=== PATIENT | female | born 1945 | race Two or more races ===

== ENCOUNTER 2016-04-30 01:38 | Inpatient (IN) | payer MEDICARE, BC ==
[2016-04-30] VITALS (40 sets, daily range): BP systolic 105–158; BP diastolic 60–107
[~2016-04-30] VITALS: Ht 165.1 cm; Wt 105.8 kg
[2016-04-30] MEDS ORDERED: FENTANYL PF 100MCG/2ML AMPUL ONE (01:46)
[2016-04-30] MEDS ORDERED: FENTANYL PF 100MCG/2ML AMPUL IV ONE (02:00)
[2016-04-30] MEDS ORDERED: ROCURONIUM BROMIDE 100 MG/10 ML VIAL IV ONE (02:00)
[2016-04-30] MEDS ORDERED: IV NS 0.9% 1,000 ML BAG IV ONE ×2 (02:00→05:00)
[2016-04-30] MEDS ORDERED: ETOMIDATE 2 MG/ML VIAL IV ONE ×2 (02:00→10:59)
[2016-04-30] MEDS ORDERED: PROPOFOL 100 ML IV ONE ×3 (02:00→06:27)
[2016-04-30] MEDS ORDERED: IV SET PRIMARY PUMP SET 1 EA INFUS.SET MC ONE ×3 (02:03→06:16)
[2016-04-30] MEDS ORDERED: IV NS 0.9% 1,000 ML ONE ×3 (02:03→06:16)
[2016-04-30 02:23] LABS: BASOPHILS # (AUTO) 0.1 /CMM (0.0-0.2); BASOPHILS % (AUTO) 0.7 % (0.0-2.0); DIFF TOTAL % 100 %; EOSINOPHILS % (AUTO) 0.4 % (0.0-6.0); HEMATOCRIT 33 % (33-45); HEMOGLOBIN 10.6 g/dL (11.5-14.8); LYMPHOCYTES % (AUTO) 15.8 % (20.0-44.0); MEAN CORPUSCULAR HEMOGLOBIN 30 PG (26.0-33.0); MEAN CORPUSCULAR HGB CONC 32 g/dl (31.0-36.0); MEAN CORPUSCULAR VOLUME 93 fL (82-100); MONOCYTES # (AUTO) 0.9 /CMM (0.1-1.30); MONOCYTES % (AUTO) 7.4 % (2.0-12.0); NEUTROPHILS # (AUTO) 9.7 /CMM (1.8-8.9); NEUTROPHILS % (AUTO) 75.7 % (43.0-81.0); PLATELET COUNT (AUTO) 286 /CMM (150-450); RED BLOOD CELL COUNT(AUTO) 3.54 MIL/uL (4.0-5.2); WHITE BLOOD COUNT (AUTO) 12.8 K/uL (4.3-11.0)
[2016-04-30 02:24] LABS: KETONES,URINE NEGATIVE (NEGATIVE); LEUKOCYTE ESTERASE ,URINE 2+ (NEGATIVE)
[2016-04-30 02:38] LABS: ANION GAP 16 (5-14); CALCIUM, SERUM 7.8 mg/dL (8.5-10.1); CARBON DIOXIDE 22 mmol/L (21-32); CHLORIDE 111 mmol/L (98-107); CREATININE 0.7 mg/dL (0.6-1.3); GFR 83 mL/min (>60); GLUCOSE 113 mg/dL (74-106); POTASSIUM 4.8 mmol/L (3.5-5.1); SODIUM SERUM 144 mmol/L (136-145); UREA NITROGEN, BLOOD 40 mg/dL (7-18)
[2016-04-30 02:40] LABS: ADD UA MICROSCOPIC YES; CANNABINOID, URINE NEGATIVE (NEGATIVE); PHENCYCLIDINE SCREEN,URINE NEGATIVE (NEGATIVE)
[2016-04-30] MEDS ORDERED: LEVE250T2 PO (02:40)
[2016-04-30] MEDS ORDERED: ENOX40DI SUBCUT (02:40)
[2016-04-30] MEDS ORDERED: LEVE500T9 PO (02:40)
[2016-04-30] MEDS ORDERED: ACET-2799 PO (02:40)
[2016-04-30] MEDS ORDERED: DEXA1TAB2 GT (02:40)
[2016-04-30] MEDS ORDERED: MAGN400O6 PO (02:40)
[2016-04-30 02:41] LABS: INR 1.22 (0.87-1.13); PROTHROMBIN TIME 13.2 SECS (9.5-12.7)
[2016-04-30 02:45] LABS: ALANINE AMINOTRANSFERASE 66 U/L (12-78); ASPARTATE AMINOTRANSFERASE 140 U/L (15-37); BILIRUBIN,DIRECT 0.2 mg/dL (0.0-0.2); BILIRUBIN,TOTAL 0.6 mg/dL (0.2-1.0); TOTAL PROTEIN, SERUM 6.1 g/dL (6.4-8.2)
[2016-04-30 02:52] LABS: ALBUMIN 1.3 g/dL (3.4-5.0); INDIRECT BILIRUBIN 0.4 mg/dL (0.0-1.1)
[2016-04-30 02:54] LABS: ACETAMINOPHEN 0 ug/ml (10-30); SALICYLATE < 0.2 mg/dL (2.8-20.0)
[2016-04-30] MEDS ORDERED: IV D5W 50 ML IV ONE (03:00)
[2016-04-30] MEDS ORDERED: PIPERACILLIN /TAZOBACTAM 3.375 G VIAL IV ONE (03:00)
[2016-04-30] MEDS ORDERED: PIPERACILLIN /TAZOBACTAM 3.375 G in IV D5W 50 ML IV ONE ×2 (03:00→05:30)
[2016-04-30] MEDS ORDERED: IV SET PRIMARY 1 EA INFUS.SET MC ONE ×2 (03:00→04:01)
[2016-04-30 03:06] LABS: ADD URINE CULTURE YES; WBC,URINE 51-80 /HPF (0-3)
[2016-04-30 03:09] LABS: ANISOCYTOSIS 2+
[2016-04-30 03:13] LABS: TROPONIN I < 0.017 ng/mL (0.00-0.056)
[2016-04-30 03:40] LABS: LACTIC ACID 3.3 mmol/L (0.4-2.0)
[2016-04-30 03:41] LABS: *LACTIC ACID REFLEX FLAG YES
[2016-04-30] MEDS ORDERED: DEXAMETHASONE SOD PHOSPHATE 10 MG/ML VIAL ONE (03:46)
[2016-04-30] MEDS ORDERED: METRONIDAZOLE 500MG/ NS 100ML 100 ML IV ONE (03:47)
[2016-04-30] MEDS ORDERED: DEXAMETHASONE SOD PHOSPHATE 4 MG/ML VIAL IV ONE (04:00)
[2016-04-30] MEDS ORDERED: FLAGYL/NS RTU 500 MG/100 ML PIGGYBACK IV ONE (04:00)
[2016-04-30] MEDS ORDERED: LACTULOSE 10 G/15 ML UDC (PYXIS) GT ONE (05:00)
[2016-04-30] MEDS ORDERED: LACTULOSE 10 G/15 ML UDC (PYXIS) ONE (05:00)
[2016-04-30] MEDS ORDERED: NEOMYCIN SULFATE (500MG) 500 MG TABLET NG ONE (05:00)
[2016-04-30] MEDS ORDERED: ZINC SULFATE 220 MG CAPSULE ONE (05:08)
[2016-04-30] MEDS ORDERED: NEOMYCIN SULFATE (500MG) 500 MG TABLET ONE (05:08)
[2016-04-30] MEDS: ZINC SULFATE 220 MG CAPSULE NG SCH (05:16)
[2016-04-30] MEDS ORDERED: IV NS 0.9% 1,000 ML IV PRN ×2 (05:20→06:00)
[2016-04-30] MEDS ORDERED: MAGNESIUM HYDROXIDE 30 ML UDC PO PRN (05:30)
[2016-04-30] MEDS ORDERED: MAG HYDROX/AL HYDROX/SIMETH 30 ML UDC PO PRN (05:30)
[2016-04-30] MEDS ORDERED: Z GUARD REMEDY 2 OZ OINT TP PRN (05:30)
[2016-04-30] MEDS ORDERED: ONDANSETRON HCL/PF 4 MG/2 ML VIAL IVP PRN (05:30)
[2016-04-30] MEDS ORDERED: DEXAMETHASONE SOD PHOSPHATE 4 MG/ML VIAL ONE (06:16)
[2016-04-30] MEDS: IV NS 0.9% 1,000 ML IV PRN ×3 (06:22→23:24)
[2016-04-30] MEDS: DEXAMETHASONE SOD PHOSPHATE 4 MG/ML VIAL IV SCH ×4 (06:24→23:25)
[2016-04-30] MEDS ORDERED: PROPOFOL 100 ML IV PRN (07:00)
[2016-04-30] MEDS ORDERED: LACTULOSE 10 G/15 ML UDC (PYXIS) PO SCH (09:00)
[2016-04-30] MEDS: PANTOPRAZOLE 40 MG VIAL IV SCH (09:51)
[2016-04-30] MEDS: LACTULOSE 10 G/15 ML UDC (PYXIS) GT SCH ×4 (09:51→20:45)
[2016-04-30] MEDS ORDERED: ROCURONIUM BROMIDE 50 MG/5 ML IV ONE (10:59)
[2016-04-30] MEDS ORDERED: FEE EMEERGENCY 1 MIN EA MC ONE (11:00)
[2016-04-30] MEDS: LEVETIRACETAM SOL (5 ML) 100 MG/ML UDC PO SCH ×2 (12:35→20:45)
[2016-05-01] VITALS (38 sets, daily range): BP systolic 100–139; BP diastolic 57–78
[2016-05-01] MEDS: LACTULOSE 10 G/15 ML UDC (PYXIS) GT SCH ×6 (00:26→20:36)
[2016-05-01] MEDS: DEXAMETHASONE SOD PHOSPHATE 4 MG/ML VIAL IV SCH ×3 (04:32→17:39)
[2016-05-01 04:39] LABS: BASOPHILS % (AUTO) 0.2 % (0.0-2.0); DIFF TOTAL % 100 %; HEMATOCRIT 30 % (33-45); HEMOGLOBIN 9.5 g/dL (11.5-14.8); LYMPHOCYTES # (AUTO) 1.1 /CMM (0.8-4.8); LYMPHOCYTES % (AUTO) 8.8 % (20.0-44.0); MEAN CORPUSCULAR HEMOGLOBIN 30 PG (26.0-33.0); MEAN CORPUSCULAR HGB CONC 32 g/dl (31.0-36.0); MEAN CORPUSCULAR VOLUME 93 fL (82-100); MONOCYTES # (AUTO) 0.9 /CMM (0.1-1.30); MONOCYTES % (AUTO) 7.4 % (2.0-12.0); NEUTROPHILS # (AUTO) 10.1 /CMM (1.8-8.9); NEUTROPHILS % (AUTO) 83.6 % (43.0-81.0); PLATELET COUNT (AUTO) 233 /CMM (150-450); RED BLOOD CELL COUNT(AUTO) 3.17 MIL/uL (4.0-5.2)
[2016-05-01 04:49] LABS: CALCIUM, SERUM 7.5 mg/dL (8.5-10.1); CREATININE 0.8 mg/dL (0.6-1.3); PHOSPHORUS 3.2 mg/dL (2.5-4.9); POTASSIUM 4.1 mmol/L (3.5-5.1)
[2016-05-01] MEDS: IV NS 0.9% 1,000 ML IV PRN (07:01)
[2016-05-01] MEDS ORDERED: DC PROPOFOL WHEN EXTUBATED XX PRN (09:00)
[2016-05-01 09:04] LABS: ABG BASE EXCESS 0.1 mmol/L; ABG HCO3 24.1 mmol/L; ABG PCO2 36.9 mmHg (35.0-45.0); ABG PH 7.433 (7.350-7.450); ABG PO2 58.7 mmHg (75.0-100.0); ABG TOTAL HEMOGLOBIN 11.1 G/dL (12.0-16.0); ALLEN TEST Pass; O2Hb 85.7 % (94.0-97.0)
[2016-05-01] MEDS: LEVETIRACETAM SOL (5 ML) 100 MG/ML UDC PO SCH ×2 (09:48→20:36)
[2016-05-01] MEDS: ZINC SULFATE 220 MG CAPSULE NG SCH (09:48)
[2016-05-01] MEDS: PANTOPRAZOLE 40 MG VIAL IV SCH (09:48)
[2016-05-01 10:21] LABS: IRON, SERUM 30 ug/dl (50-175); PERCENT SATURATION 17 % (14-33); TOTAL IRON BINDING CAPACITY 173 ug/dl (250-450)
[2016-05-01] MEDS ORDERED: GADOVERSETAMIDE 2.5 MMOL/5 ML VIAL IJ ONE (15:18)
[2016-05-01] MEDS: IV D5/0.45 NACL 1,000 ML IV PRN (15:19)
[2016-05-02] VITALS (37 sets, daily range): BP systolic 98–148; BP diastolic 40–83
[2016-05-02] MEDS: DEXAMETHASONE SOD PHOSPHATE 4 MG/ML VIAL IV SCH ×5 (00:07→23:10)
[2016-05-02] MEDS: LACTULOSE 10 G/15 ML UDC (PYXIS) GT SCH ×6 (00:08→21:38)
[2016-05-02] MEDS: IV D5/0.45 NACL 1,000 ML IV PRN (01:15)
[2016-05-02 04:17] LABS: BASOPHILS % (AUTO) 0.1 % (0.0-2.0); DIFF TOTAL % 100 %; HEMATOCRIT 27 % (33-45); HEMOGLOBIN 8.5 g/dL (11.5-14.8); LYMPHOCYTES # (AUTO) 0.8 /CMM (0.8-4.8); LYMPHOCYTES % (AUTO) 7.4 % (20.0-44.0); MEAN CORPUSCULAR HEMOGLOBIN 30 PG (26.0-33.0); MEAN CORPUSCULAR HGB CONC 32 g/dl (31.0-36.0); MEAN CORPUSCULAR VOLUME 94 fL (82-100); MONOCYTES # (AUTO) 0.7 /CMM (0.1-1.30); MONOCYTES % (AUTO) 6.5 % (2.0-12.0); NEUTROPHILS # (AUTO) 8.8 /CMM (1.8-8.9); PLATELET COUNT (AUTO) 192 /CMM (150-450); RED BLOOD CELL COUNT(AUTO) 2.84 MIL/uL (4.0-5.2); WHITE BLOOD COUNT (AUTO) 10.3 K/uL (4.3-11.0)
[2016-05-02 05:22] LABS: CALCIUM, SERUM 7.2 mg/dL (8.5-10.1); CREATININE 0.8 mg/dL (0.6-1.3); PHOSPHORUS 3.4 mg/dL (2.5-4.9); POTASSIUM 4.1 mmol/L (3.5-5.1)
[2016-05-02 08:48] LABS: ABG BASE EXCESS -2.2 mmol/L; ABG HCO3 21.8 mmol/L; ABG PCO2 34.3 mmHg (35.0-45.0); ABG PH 7.421 (7.350-7.450); ABG PO2 92.4 mmHg (75.0-100.0); ALLEN TEST Pass; AaDO2 66.8 mmHg; O2Hb 94.1 % (94.0-97.0)
[2016-05-02] MEDS: PANTOPRAZOLE 40 MG VIAL IV SCH (09:17)
[2016-05-02] MEDS: LEVETIRACETAM SOL (5 ML) 100 MG/ML UDC PO SCH ×2 (09:17→21:38)
[2016-05-02] MEDS: ZINC SULFATE 220 MG CAPSULE NG SCH (09:17)
[2016-05-02] MEDS ORDERED: SECONDARY IV SET 1 EA INFUS.SET MC ONE (10:01)
[2016-05-02] MEDS: LEVOFLOXACIN 750 MG /D5W 150ML 750 MG in PREMIX 1 EA IV SCH (10:03)
[2016-05-02] MEDS ORDERED: IV SET PRIMARY PUMP SET 1 EA INFUS.SET MC ONE (11:26)
[2016-05-02] MEDS: ALBUMIN 25% 25 GM in PREMIX 1 EA IV SCH ×3 (12:32→23:10)
[2016-05-02] MEDS: IV D5W 1,000 ML IV PRN (19:21)
[2016-05-02 20:03] LABS: BASOPHILS # (AUTO) 0.2 /CMM (0.0-0.2); BASOPHILS % (AUTO) 1.6 % (0.0-2.0); DIFF TOTAL % 100 %; HEMATOCRIT 24 % (33-45); HEMOGLOBIN 7.9 g/dL (11.5-14.8); LYMPHOCYTES # (AUTO) 0.7 /CMM (0.8-4.8); LYMPHOCYTES % (AUTO) 7.6 % (20.0-44.0); MEAN CORPUSCULAR HEMOGLOBIN 31 PG (26.0-33.0); MEAN CORPUSCULAR HGB CONC 33 g/dl (31.0-36.0); MEAN CORPUSCULAR VOLUME 93 fL (82-100); MONOCYTES # (AUTO) 0.8 /CMM (0.1-1.30); MONOCYTES % (AUTO) 8.2 % (2.0-12.0); NEUTROPHILS % (AUTO) 82.6 % (43.0-81.0); PLATELET COUNT (AUTO) 148 /CMM (150-450); RED BLOOD CELL COUNT(AUTO) 2.59 MIL/uL (4.0-5.2); WHITE BLOOD COUNT (AUTO) 9.7 K/uL (4.3-11.0)
[2016-05-02 20:26] LABS: URINE SODIUM, RANDOM 10 mmol/l (40-220)
[2016-05-03] VITALS (34 sets, daily range): BP systolic 110–134; BP diastolic 56–73
[2016-05-03] MEDS: LACTULOSE 10 G/15 ML UDC (PYXIS) GT SCH ×3 (01:01→08:01)
[2016-05-03 01:27] LABS: BASOPHILS % (AUTO) 0.1 % (0.0-2.0); DIFF TOTAL % 100 %; HEMATOCRIT 22 % (33-45); LYMPHOCYTES # (AUTO) 0.5 /CMM (0.8-4.8); LYMPHOCYTES % (AUTO) 6.9 % (20.0-44.0); MEAN CORPUSCULAR HEMOGLOBIN 30 PG (26.0-33.0); MEAN CORPUSCULAR HGB CONC 32 g/dl (31.0-36.0); MEAN CORPUSCULAR VOLUME 93 fL (82-100); MONOCYTES # (AUTO) 0.4 /CMM (0.1-1.30); MONOCYTES % (AUTO) 5.9 % (2.0-12.0); NEUTROPHILS # (AUTO) 6.5 /CMM (1.8-8.9); NEUTROPHILS % (AUTO) 87.1 % (43.0-81.0); PLATELET COUNT (AUTO) 133 /CMM (150-450); RED BLOOD CELL COUNT(AUTO) 2.33 MIL/uL (4.0-5.2); WHITE BLOOD COUNT (AUTO) 7.5 K/uL (4.3-11.0)
[2016-05-03 01:40] LABS: HEMOGLOBIN 6.9 g/dL (11.5-14.8)
[2016-05-03 04:53] LABS: ANISOCYTOSIS 3+; HYPOCHROMASIA 3+; LYMPHOCYTES % (MANUAL) 12 % (16-48); PLATELET ESTIMATE DECREASED
[2016-05-03] MEDS: ALBUMIN 25% 25 GM in PREMIX 1 EA IV SCH (04:54)
[2016-05-03] MEDS: DEXAMETHASONE SOD PHOSPHATE 4 MG/ML VIAL IV SCH ×4 (05:00→23:23)
[2016-05-03] MEDS ORDERED: BLOOD IV SET 1 EA INFUS.SET MC ONE ×3 (05:40→21:23)
[2016-05-03] MEDS ORDERED: IV NS 0.9% 250 ML IV ONE ×2 (05:40→16:46)
[2016-05-03 06:38] LABS: BASOPHILS % (AUTO) 0.2 % (0.0-2.0); DIFF TOTAL % 100 %; EOSINOPHILS % (AUTO) 0.1 % (0.0-6.0); HEMATOCRIT 22 % (33-45); LYMPHOCYTES # (AUTO) 0.5 /CMM (0.8-4.8); LYMPHOCYTES % (AUTO) 7.3 % (20.0-44.0); MEAN CORPUSCULAR HEMOGLOBIN 30 PG (26.0-33.0); MEAN CORPUSCULAR HGB CONC 32 g/dl (31.0-36.0); MEAN CORPUSCULAR VOLUME 94 fL (82-100); MONOCYTES # (AUTO) 0.4 /CMM (0.1-1.30); MONOCYTES % (AUTO) 5.9 % (2.0-12.0); NEUTROPHILS # (AUTO) 6.1 /CMM (1.8-8.9); NEUTROPHILS % (AUTO) 86.5 % (43.0-81.0); PLATELET COUNT (AUTO) 121 /CMM (150-450); RED BLOOD CELL COUNT(AUTO) 2.29 MIL/uL (4.0-5.2)
[2016-05-03 06:48] LABS: URINE SODIUM, RANDOM 58 mmol/l (40-220)
[2016-05-03 06:51] LABS: CALCIUM, SERUM 7.6 mg/dL (8.5-10.1); CREATININE 0.8 mg/dL (0.6-1.3); PHOSPHORUS 2.9 mg/dL (2.5-4.9); POTASSIUM 3.5 mmol/L (3.5-5.1)
[2016-05-03 07:01] LABS: THYROID STIMULATING HORMONE 1.435 uIU/mL (0.358-3.74); URIC ACID 4.5 mg/dL (2.6-7.2)
[2016-05-03 07:41] LABS: HEMOGLOBIN 6.9 g/dL (11.5-14.8)
[2016-05-03] MEDS: LEVETIRACETAM SOL (5 ML) 100 MG/ML UDC PO SCH ×2 (08:00→21:30)
[2016-05-03] MEDS: ZINC SULFATE 220 MG CAPSULE NG SCH (08:01)
[2016-05-03] MEDS: PANTOPRAZOLE 40 MG VIAL IV SCH (08:01)
[2016-05-03 09:58] LABS: ANISOCYTOSIS 2+; BAND % (MANUAL) 1 % (0.0-5.0); LYMPHOCYTES % (MANUAL) 5 % (16-48); PLATELET ESTIMATE DECREASED
[2016-05-03] MEDS: LEVOFLOXACIN 750 MG /D5W 150ML 750 MG in PREMIX 1 EA IV SCH (10:36)
[2016-05-03] MEDS ORDERED: PANTOPRAZOLE 80 MG in IV NS 0.9% 100 ML IV ONE ×2 (11:30→12:00)
[2016-05-03] MEDS ORDERED: IV SET PRIMARY PUMP SET 1 EA INFUS.SET MC ONE (12:35)
[2016-05-03] MEDS: PANTOPRAZOLE 80 MG in IV NS 0.9% 500 ML IV PRN (13:04)
[2016-05-03] MEDS: IV D5W 1,000 ML IV PRN (13:17)
[2016-05-03 13:30] LABS: BASOPHILS % (AUTO) 0.2 % (0.0-2.0); DIFF TOTAL % 100 %; EOSINOPHILS % (AUTO) 0.1 % (0.0-6.0); HEMATOCRIT 29 % (33-45); HEMOGLOBIN 9.3 g/dL (11.5-14.8); LYMPHOCYTES # (AUTO) 0.7 /CMM (0.8-4.8); LYMPHOCYTES % (AUTO) 8.2 % (20.0-44.0); MEAN CORPUSCULAR HEMOGLOBIN 30 PG (26.0-33.0); MEAN CORPUSCULAR HGB CONC 32 g/dl (31.0-36.0); MEAN CORPUSCULAR VOLUME 92 fL (82-100); MONOCYTES # (AUTO) 0.5 /CMM (0.1-1.30); MONOCYTES % (AUTO) 5.5 % (2.0-12.0); NEUTROPHILS # (AUTO) 7.3 /CMM (1.8-8.9); PLATELET COUNT (AUTO) 108 /CMM (150-450); RED BLOOD CELL COUNT(AUTO) 3.15 MIL/uL (4.0-5.2); WHITE BLOOD COUNT (AUTO) 8.5 K/uL (4.3-11.0)
[2016-05-03 13:36] LABS: ALBUMIN 2.6 g/dL (3.4-5.0); BILIRUBIN,DIRECT 0.4 mg/dL (0.0-0.2); BILIRUBIN,TOTAL 0.8 mg/dL (0.2-1.0); INDIRECT BILIRUBIN 0.4 mg/dL (0.0-1.1); TOTAL PROTEIN, SERUM 5.3 g/dL (6.4-8.2)
[2016-05-03] MEDS ORDERED: PANTOPRAZOLE 40 MG VIAL IV SCH (17:00)
[2016-05-04] VITALS (33 sets, daily range): BP systolic 104–143; BP diastolic 49–78
[2016-05-04] MEDS ORDERED: PANTOPRAZOLE 40 MG VIAL ONE (01:19)
[2016-05-04] MEDS ORDERED: IV NS 0.9% 500 ML IV ONE (01:19)
[2016-05-04] MEDS: PANTOPRAZOLE 80 MG in IV NS 0.9% 500 ML IV PRN ×3 (01:29→20:58)
[2016-05-04] MEDS: IV D5W 1,000 ML IV PRN ×3 (01:33→21:56)
[2016-05-04 04:49] LABS: BASOPHILS % (AUTO) 0.4 % (0.0-2.0); DIFF TOTAL % 100 %; HEMATOCRIT 27 % (33-45); HEMOGLOBIN 8.7 g/dL (11.5-14.8); LYMPHOCYTES # (AUTO) 0.5 /CMM (0.8-4.8); LYMPHOCYTES % (AUTO) 5.8 % (20.0-44.0); MEAN CORPUSCULAR HEMOGLOBIN 29 PG (26.0-33.0); MEAN CORPUSCULAR HGB CONC 32 g/dl (31.0-36.0); MEAN CORPUSCULAR VOLUME 91 fL (82-100); MONOCYTES # (AUTO) 0.4 /CMM (0.1-1.30); MONOCYTES % (AUTO) 4.8 % (2.0-12.0); NEUTROPHILS # (AUTO) 6.9 /CMM (1.8-8.9); PLATELET COUNT (AUTO) 92 /CMM (150-450); RED BLOOD CELL COUNT(AUTO) 2.97 MIL/uL (4.0-5.2); WHITE BLOOD COUNT (AUTO) 7.8 K/uL (4.3-11.0)
[2016-05-04 05:07] LABS: CALCIUM, SERUM 7.9 mg/dL (8.5-10.1); CREATININE 0.7 mg/dL (0.6-1.3); PHOSPHORUS 2.9 mg/dL (2.5-4.9); POTASSIUM 3.8 mmol/L (3.5-5.1)
[2016-05-04] MEDS: DEXAMETHASONE SOD PHOSPHATE 4 MG/ML VIAL IV SCH ×3 (05:19→17:01)
[2016-05-04 05:44] LABS: BAND % (MANUAL) 6 % (0.0-5.0); EOSINOPHILS % (MANUAL) 1 % (0-4); LYMPHOCYTES % (MANUAL) 10 % (16-48); PLATELET ESTIMATE DECREASED
[2016-05-04 05:45] LABS: ANISOCYTOSIS 2+; HYPOCHROMASIA 1+
[2016-05-04] MEDS: LEVETIRACETAM SOL (5 ML) 100 MG/ML UDC PO SCH ×2 (08:21→20:44)
[2016-05-04] MEDS: ZINC SULFATE 220 MG CAPSULE NG SCH (08:21)
[2016-05-04] MEDS: LACTULOSE 10 G/15 ML UDC (PYXIS) GT SCH (08:21)
[2016-05-04] MEDS ORDERED: IV SET PRIMARY PUMP SET 1 EA INFUS.SET MC ONE (10:55)
[2016-05-04] MEDS: LEVOFLOXACIN 750 MG /D5W 150ML 750 MG in PREMIX 1 EA IV SCH (11:17)
[2016-05-05] VITALS (8 sets, daily range): BP systolic 113–148; BP diastolic 62–90
[2016-05-05] MEDS: DEXAMETHASONE SOD PHOSPHATE 4 MG/ML VIAL IV SCH ×5 (00:09→23:12)
[2016-05-05 07:27] LABS: BASOPHILS % (AUTO) 0.1 % (0.0-2.0); DIFF TOTAL % 100 %; HEMATOCRIT 31 % (33-45); HEMOGLOBIN 10.5 g/dL (11.5-14.8); LYMPHOCYTES # (AUTO) 0.6 /CMM (0.8-4.8); LYMPHOCYTES % (AUTO) 5.5 % (20.0-44.0); MEAN CORPUSCULAR HEMOGLOBIN 31 PG (26.0-33.0); MEAN CORPUSCULAR HGB CONC 34 g/dl (31.0-36.0); MEAN CORPUSCULAR VOLUME 91 fL (82-100); MONOCYTES # (AUTO) 0.3 /CMM (0.1-1.30); NEUTROPHILS # (AUTO) 10.1 /CMM (1.8-8.9); NEUTROPHILS % (AUTO) 91.4 % (43.0-81.0); PLATELET COUNT (AUTO) 83 /CMM (150-450); WHITE BLOOD COUNT (AUTO) 11.1 K/uL (4.3-11.0)
[2016-05-05 07:53] LABS: CALCIUM, SERUM 7.6 mg/dL (8.5-10.1); CREATININE 0.6 mg/dL (0.6-1.3); PHOSPHORUS 2.4 mg/dL (2.5-4.9); POTASSIUM 3.3 mmol/L (3.5-5.1)
[2016-05-05] MEDS: PANTOPRAZOLE 80 MG in IV NS 0.9% 500 ML IV PRN ×2 (08:12→20:00)
[2016-05-05] MEDS: LEVETIRACETAM SOL (5 ML) 100 MG/ML UDC PO SCH ×2 (08:20→20:38)
[2016-05-05] MEDS: ZINC SULFATE 220 MG CAPSULE NG SCH (08:20)
[2016-05-05] MEDS: LACTULOSE 10 G/15 ML UDC (PYXIS) GT SCH (08:21)
[2016-05-05] MEDS: IV D5W 1,000 ML IV PRN (08:31)
[2016-05-05 09:08] LABS: ANISOCYTOSIS 1+; LYMPHOCYTES % (MANUAL) 3 % (16-48); PLATELET ESTIMATE DECREASED
[2016-05-05] MEDS ORDERED: POTASSIUM CHLORIDE 20 MEQ TAB.PRT.SR PO SCH (10:00)
[2016-05-05] MEDS ORDERED: SECONDARY IV SET 1 EA INFUS.SET MC ONE ×2 (10:26→12:35)
[2016-05-05] MEDS: LEVOFLOXACIN 750 MG /D5W 150ML 750 MG in PREMIX 1 EA IV SCH (10:30)
[2016-05-05] MEDS ORDERED: POTASSIUM CHLORIDE 20 MEQ POWDER PACKET PO ONE (10:30)
[2016-05-05] MEDS ORDERED: POTASSIUM PHOSPHATE MM 15 MMOL in IV D5W 250 ML IV SCH (11:00)
[2016-05-05] MEDS ORDERED: FUROSEMIDE 40 MG/4 ML VIAL IV SCH (11:00)
[2016-05-05] MEDS: POTASSIUM PHOSPHATE MM 7.5 MMOL in IV D5W 100 ML IV SCH ×2 (12:40→15:46)
[2016-05-05 13:45] LABS: ABG BASE EXCESS -1.6 mmol/L; ABG HCO3 22.2 mmol/L; ABG PH 7.432 (7.350-7.450); ABG PO2 75.3 mmHg (75.0-100.0); ALLEN TEST Pass; AaDO2 84.2 mmHg; O2Hb 92.5 % (94.0-97.0)
[2016-05-06] VITALS (7 sets, daily range): BP systolic 111–133; BP diastolic 57–74
[2016-05-06] MEDS: DEXAMETHASONE SOD PHOSPHATE 4 MG/ML VIAL IV SCH ×4 (05:15→23:40)
[2016-05-06] MEDS: PANTOPRAZOLE 80 MG in IV NS 0.9% 500 ML IV PRN (06:14)
[2016-05-06 07:31] LABS: CALCIUM, SERUM 7.8 mg/dL (8.5-10.1); CREATININE 0.5 mg/dL (0.6-1.3); POTASSIUM 3.9 mmol/L (3.5-5.1)
[2016-05-06 07:39] LABS: DIFF TOTAL % 100 %; HEMATOCRIT 34 % (33-45); HEMOGLOBIN 11.1 g/dL (11.5-14.8); LYMPHOCYTES # (AUTO) 0.5 /CMM (0.8-4.8); LYMPHOCYTES % (AUTO) 4.6 % (20.0-44.0); MEAN CORPUSCULAR HEMOGLOBIN 30 PG (26.0-33.0); MEAN CORPUSCULAR HGB CONC 33 g/dl (31.0-36.0); MEAN CORPUSCULAR VOLUME 91 fL (82-100); MONOCYTES # (AUTO) 0.5 /CMM (0.1-1.30); MONOCYTES % (AUTO) 3.9 % (2.0-12.0); NEUTROPHILS # (AUTO) 10.8 /CMM (1.8-8.9); NEUTROPHILS % (AUTO) 91.5 % (43.0-81.0); PLATELET COUNT (AUTO) 90 /CMM (150-450); RED BLOOD CELL COUNT(AUTO) 3.72 MIL/uL (4.0-5.2); WHITE BLOOD COUNT (AUTO) 11.9 K/uL (4.3-11.0)
[2016-05-06 08:09] LABS: PHOSPHORUS 2.9 mg/dL (2.5-4.9)
[2016-05-06] MEDS: ZINC SULFATE 220 MG CAPSULE NG SCH (08:10)
[2016-05-06] MEDS: LEVETIRACETAM SOL (5 ML) 100 MG/ML UDC PO SCH ×2 (08:10→20:36)
[2016-05-06] MEDS: LACTULOSE 10 G/15 ML UDC (PYXIS) GT SCH (08:10)
[2016-05-06 09:25] LABS: ANISOCYTOSIS 2+; BAND % (MANUAL) 1 % (0.0-5.0); BURR CELLS 1+; LYMPHOCYTES % (MANUAL) 4 % (16-48); PLATELET ESTIMATE DECREASED
[2016-05-06] MEDS ORDERED: LACT10SO6 GT (09:57)
[2016-05-06] MEDS ORDERED: LEVE100S PO (09:57)
[2016-05-06] MEDS ORDERED: PANT40TA2 PO (09:57)
[2016-05-06] MEDS ORDERED: AMOX-430 PO (09:58)
[2016-05-06] MEDS ORDERED: SECONDARY IV SET 1 EA INFUS.SET MC ONE (09:59)
[2016-05-06] MEDS: Magnesium 1GM/D5W 100ML PREMIX 100 ML IV SCH ×4 (10:03→13:04)
[2016-05-06] MEDS ORDERED: IV SET PRIMARY PUMP SET 1 EA INFUS.SET MC ONE (11:00)
[2016-05-06] MEDS: LEVOFLOXACIN 750 MG /D5W 150ML 750 MG in PREMIX 1 EA IV SCH (11:03)
[2016-05-06] MEDS: PANTOPRAZOLE 40 MG TABLET.DR PO SCH (20:36)
[2016-05-07] MEDS: DEXAMETHASONE SOD PHOSPHATE 4 MG/ML VIAL IV SCH ×3 (05:04→17:27)
[2016-05-07 07:26] LABS: CALCIUM, SERUM 7.9 mg/dL (8.5-10.1); CREATININE 0.5 mg/dL (0.6-1.3); POTASSIUM 4.8 mmol/L (3.5-5.1)
[2016-05-07 08:00] VITALS: BP 128/73
[2016-05-07] MEDS: LACTULOSE 10 G/15 ML UDC (PYXIS) GT SCH (08:37)
[2016-05-07] MEDS: LEVETIRACETAM SOL (5 ML) 100 MG/ML UDC PO SCH ×2 (08:37→21:30)
[2016-05-07] MEDS: PANTOPRAZOLE 40 MG TABLET.DR PO SCH ×2 (08:37→21:30)
[2016-05-07] MEDS: ZINC SULFATE 220 MG CAPSULE NG SCH (08:37)
[2016-05-07] MEDS: LEVOFLOXACIN 750 MG /D5W 150ML 750 MG in PREMIX 1 EA IV SCH (11:01)
[2016-05-07 16:00] VITALS: BP 113/68
[2016-05-07 20:00] VITALS: BP 127/65
[2016-05-07 20:24] VITALS: BP 127/65
[2016-05-08] MEDS: DEXAMETHASONE SOD PHOSPHATE 4 MG/ML VIAL IV SCH ×4 (00:30→17:00)
[2016-05-08 06:52] LABS: CREATININE 0.6 mg/dL (0.6-1.3); POTASSIUM 4.3 mmol/L (3.5-5.1)
[2016-05-08 08:00] VITALS: BP 135/72
[2016-05-08 08:28] VITALS: BP 135/72
[2016-05-08] MEDS: LEVETIRACETAM SOL (5 ML) 100 MG/ML UDC PO SCH ×2 (09:12→20:56)
[2016-05-08] MEDS: PANTOPRAZOLE 40 MG TABLET.DR PO SCH ×2 (09:12→20:56)
[2016-05-08] MEDS: ZINC SULFATE 220 MG CAPSULE NG SCH (09:12)
[2016-05-08] MEDS: LACTULOSE 10 G/15 ML UDC (PYXIS) GT SCH (09:12)
[2016-05-08] MEDS: LEVOFLOXACIN 750 MG /D5W 150ML 750 MG in PREMIX 1 EA IV SCH (10:49)
[2016-05-08] MEDS ORDERED: SECONDARY IV SET 1 EA INFUS.SET MC ONE (11:04)
[2016-05-08 16:00] VITALS: BP 122/75
[2016-05-08 19:00] VITALS: BP 141/86
[2016-05-09] MEDS: DEXAMETHASONE SOD PHOSPHATE 4 MG/ML VIAL IV SCH ×3 (00:11→11:59)
[2016-05-09 07:49] LABS: CALCIUM, SERUM 7.8 mg/dL (8.5-10.1); CREATININE 0.6 mg/dL (0.6-1.3); POTASSIUM 4.5 mmol/L (3.5-5.1)
[2016-05-09 08:00] VITALS: BP 117/69
[2016-05-09] MEDS: LACTULOSE 10 G/15 ML UDC (PYXIS) GT SCH (09:14)
[2016-05-09] MEDS: ZINC SULFATE 220 MG CAPSULE NG SCH (09:14)
[2016-05-09] MEDS: LEVETIRACETAM SOL (5 ML) 100 MG/ML UDC PO SCH (09:14)
[2016-05-09] MEDS: PANTOPRAZOLE 40 MG TABLET.DR PO SCH (09:14)
[2016-05-09] MEDS: LEVOFLOXACIN 750 MG /D5W 150ML 750 MG in PREMIX 1 EA IV SCH (10:34)
[2016-05-09] MEDS ORDERED: ALPRAZOLAM 0.25 MG TABLET PO PRN (11:00)
== END 2016-05-09 13:30 | disposition hospice, home (50) | DRG 208 ==
LOC: ER 01:40 → ICU 05:20 → TELE1 05-02 22:00 → ICU 05-03 11:46 → TELE 05-04 22:51 → MED 05-05 08:53
PROVIDERS: ADMIT Contractor; ATTEND Contractor
PROC: 5A1945Z Respiratory Ventilation, 24-96 Consecutive Hours (ICD-10-PCS; principal; 2016-04-30)
PROC: 0BH17EZ Insertion of Endotracheal Airway into Trachea, Via Natural or Artificial Opening (ICD-10-PCS; 2016-04-30)
PROC: 05H633Z Insertion of Infusion Device into Left Subclavian Vein, Percutaneous Approach (ICD-10-PCS; 2016-04-30)
PROC: 30233K1 Transfusion of Nonautologous Frozen Plasma into Peripheral Vein, Percutaneous Approach (ICD-10-PCS; 2016-05-03)
PROC: 30233N1 Transfusion of Nonautologous Red Blood Cells into Peripheral Vein, Percutaneous Approach (ICD-10-PCS; 2016-05-03)
PROC: 30233M1 Transfusion of Nonautologous Plasma Cryoprecipitate into Peripheral Vein, Percutaneous Approach (ICD-10-PCS; 2016-05-03)
DX: J96.01 Acute respiratory failure with hypoxia (principal); J69.0 Pneumonitis due to inhalation of food and vomit; N17.0 Acute kidney failure with tubular necrosis; G92 Toxic encephalopathy; R57.1 Hypovolemic shock; J15.6 Pneumonia due to other Gram-negative bacteria; C18.9 Malignant neoplasm of colon, unspecified; C78.7 Secondary malignant neoplasm of liver and intrahepatic bile duct; K92.2 Gastrointestinal hemorrhage, unspecified; N39.0 Urinary tract infection, site not specified; C79.31 Secondary malignant neoplasm of brain; D62 Acute posthemorrhagic anemia; E46 Unspecified protein-calorie malnutrition; E87.0 Hyperosmolality and hypernatremia; E87.2 Acidosis; E72.20 Disorder of urea cycle metabolism, unspecified; J98.11 Atelectasis; K72.90 Hepatic failure, unspecified without coma; E66.01 Morbid (severe) obesity due to excess calories; E83.51 Hypocalcemia; F32.9 Major depressive disorder, single episode, unspecified; R13.10 Dysphagia, unspecified; Z51.5 Encounter for palliative care; E88.09 Other disorders of plasma-protein metabolism, not elsewhere classified; D72.829 Elevated white blood cell count, unspecified; E87.8 Other disorders of electrolyte and fluid balance, not elsewhere classified; R73.9 Hyperglycemia, unspecified; D63.8 Anemia in other chronic diseases classified elsewhere; B96.20 Unspecified Escherichia coli [E. coli] as the cause of diseases classified elsewhere; B96.1 Klebsiella pneumoniae [K. pneumoniae] as the cause of diseases classified elsewhere; Z98.890 Other specified postprocedural states; D50.0 Iron deficiency anemia secondary to blood loss (chronic); B96.89 Other specified bacterial agents as the cause of diseases classified elsewhere; I50.9 Heart failure, unspecified; I11.0 Hypertensive heart disease with heart failure
CPT/HCPCS: 31720; 36415; 36569; 36600; 70450-TC; 70553-TC; 71010-TC; 80048-TC; 80076-TC; 80305; 81000-TC; 82140-TC; 82272-TC; 82542; 82803-TC; 82962-TC; 83540-TC; 83605-TC; 83735-TC; 83935-TC; 84100-TC; 84300-TC; 84443-TC; 84484-TC; 84550-TC; 85025-TC; 85730-TC; 86850-TC; 86921-TC; 87040-TC; 87081-TC; 87086-TC; 87186-TC; 92521; 92611-TC; 94003-TC; 94799-TC; 95819-TC; A4216; A4217; A4606; A9560; A9579; C9113; G0480; G6039-TC; J1100; J1953; J1956; J2405; J2543; J3010; J3475; J3490; J7030; J7040; J7050; J7060; J7070; P9012; P9016-BL; P9017-BL; P9047; Z7610